=== PATIENT | female | born 1940 | race Caucasian/White ===

== ENCOUNTER 2020-08-29 16:21 | Inpatient (IN) | payer MEDICARE ==
[~2020-08-29] VITALS: Ht 162.6 cm; Wt 73.1 kg
[2020-08-29] MEDS ORDERED: Z GUARD REMEDY PASTE 57 GM TUBE TOP PRN (20:00)
[2020-08-29 22:00] VITALS: BP 138/64
[2020-08-29] MEDS ORDERED: ONDA4TAB11 PO (22:43)
[2020-08-29] MEDS ORDERED: BISA10SU61 RC (22:43)
[2020-08-29] MEDS ORDERED: IPRA3AMP23 IH (22:43)
[2020-08-29] MEDS ORDERED: ESCI10TA PO (22:43)
[2020-08-29] MEDS ORDERED: CYAN100T44 PO (22:43)
[2020-08-29] MEDS ORDERED: MONT10TA33 PO (22:43)
[2020-08-29] MEDS ORDERED: DILT30TA2 PO (22:43)
[2020-08-29] MEDS ORDERED: [UNRECOGNIZED DRUG - CODE] PO (22:43)
[2020-08-29] MEDS ORDERED: POLY17PO4 GT (22:43)
[2020-08-29] MEDS ORDERED: SENN-261 PO (22:43)
[2020-08-29] MEDS ORDERED: PHEN30SP9 MM (22:43)
[2020-08-29] MEDS ORDERED: APIX5TAB PO (22:43)
[2020-08-29] MEDS ORDERED: BENZ200C53 PO (22:43)
[2020-08-29] MEDS ORDERED: POLY17PO4 PO (22:43)
[2020-08-29] MEDS ORDERED: AMIO400T5 PO (22:43)
[2020-08-29] MEDS ORDERED: METO-356 PO (22:43)
[2020-08-29] MEDS ORDERED: FOLI1TAB94 PO (22:43)
[2020-08-29] MEDS ORDERED: LIDO30AD10 TD ×2 (22:43)
[2020-08-29] MEDS ORDERED: CLON0.5T4 PO (22:43)
[2020-08-29] MEDS ORDERED: IPRA0.2S48 NEB (22:43)
--- NOTE | 2020-08-30 02:31 | NUR ---
Admitted a 80 yr old female from [facility] with admitting diagnosis of acute COPD exacerbation and chronic hypoxic respiratory failure. AAOx3-4. Hx of Afib, Anemia, Arthritis, COVID(+) 2019. Patient DNR/DNI. Allergies to Iodine, Oxycodone, Percocet, Azithromycin. Lungs diminished. On continous 3L via nasal cannula, pulse 0x 94%. Incontinent of bowel and bladder. Kept clean and dry. No BM noted this shift. Skin intact, but has some redness on the sacral area. Dr Wiggins aware of patient's admission. VSS. Needs attended. Will monitor patient. Fall precautions maintained. Siderails up for safety.
[2020-08-30 05:32] VITALS: BP 136/50
[2020-08-30] MEDS ORDERED: CALCIUM CARBONATE 500 MG TAB.CHEW PO PRN (07:45)
[2020-08-30] MEDS ORDERED: ONDANSETRON ODT 4 MG TAB.RAPDIS SL PRN ×2 (07:45)
[2020-08-30] MEDS ORDERED: IPRATROPIUM BROMIDE 0.5 MG/2.5 ML NEBU NEB PRN (07:45)
[2020-08-30] MEDS ORDERED: Medication Not On Formulary EA (Benzonatate 200 MG) PO SCH (07:45)
[2020-08-30] MEDS ORDERED: BISACODYL 10 MG SUPP.RECT RC PRN (07:45)
[2020-08-30 08:08] VITALS: BP 138/64
[2020-08-30] MEDS: DILTIAZEM HCL 30 MG TABLET PO SCH ×2 (08:34→16:30)
[2020-08-30] MEDS ORDERED: Medication Not On Formulary EA (Amiodarone Hcl (Cordarone) 400 MG) PO SCH (09:00)
[2020-08-30] MEDS ORDERED: CYANOCOBALAMIN 100 MCG TABLET PO SCH (09:00)
[2020-08-30] MEDS: MIRALAX 17 GM POWD.PACK PO SCH (09:03)
[2020-08-30] MEDS: MONTELUKAST SODIUM 10 MG TABLET PO SCH (09:04)
[2020-08-30] MEDS: FOLIC ACID 1 MG TABLET PO SCH (09:04)
[2020-08-30] MEDS: ESCITALOPRAM OXALATE 10 MG TABLET PO SCH (09:05)
[2020-08-30] MEDS: LIDOCAINE 5% PATCH TD SCH ×2 (09:05→09:06)
[2020-08-30] MEDS: APIXABAN 5 MG TABLET PO SCH ×2 (09:07→16:33)
[2020-08-30] MEDS ORDERED: PHENOL/SODIUM PHENOLATE SPRAY 177 ML BOTTLE MM PRN (09:15)
[2020-08-30] MEDS: CLONAZEPAM 0.5 MG TABLET PO PRN ×2 (09:44→22:14)
[2020-08-30] MEDS: ALBUTEROL SULFATE 2.5 MG/3 ML NEBU NEB SCH ×3 (10:30→21:00)
[2020-08-30] MEDS: IPRATROPIUM BROMIDE 0.5 MG/2.5 ML NEBU NEB SCH ×3 (10:30→21:00)
[2020-08-30] MEDS: CYANOCOBALAMIN 1,000 MCG TABLET PO SCH (11:36)
--- NOTE | 2020-08-30 13:43 | NUR ---
INTERDISCIPLINARY TEAM CONFERENCE
[2020-08-30] MEDS: METOPROLOL SUCCINATE XL 25 MG TAB.SR.24H PO SCH (14:34)
[2020-08-30 14:49] VITALS: BP 121/42
[2020-08-30] MEDS: AMIODARONE HCL 200 MG TABLET PO SCH (16:34)
--- NOTE | 2020-08-30 17:02 | NUR ---
patient is alert, oriented x4, no sob, resp even nonlabored, skin warm and dry to touch, total care with adls, participated with rehab OT, PT evaluation, patient seems upper respiratory congestion, breathing tx administered as ordered, saturating at 90s with 2 liter of o2 via nasal canula, no distress noted, turned and repositioned every 2 hours while in bed, heels floated on pillows to relieve the pressure. no distress noted.
[2020-08-30 20:00] VITALS: BP 109/76
--- NOTE | 2020-08-30 20:16 | NUR ---
PATIENT HAS LOW GRADE TEMP 100.4 COOLING MEASURE GIVEN, PATIENT STILL HAS PRODUCTIVE COUGH, ABLE TO SPIT AND SUCTION SELF, NO S/S OF DISTRESS. CONT TO MONITOR.
--- NOTE | 2020-08-30 20:30 | NUR ---
ADITI A CALL TO EXCHANGE OF DR. Niko MARX AND LEFT A MESSAGE REGARDING THE TEMP, AWAITING FOR RESPONSE.
[2020-08-30] MEDS: SENNOSIDES 1 TABLET PO SCH (20:35)
--- NOTE | 2020-08-30 22:05 | NUR ---
PATIENT SEEN BY [facility] INFECTIOUS NURSE AND REPORTED THAT PATIENT HAS TEMP 100.4 WITH ORDER OF BLOOD CULTURE AND XRAY IN AM.
[2020-08-30] MEDS: BENZONATATE 100 MG CAPSULE PO PRN (22:14)
--- NOTE | 2020-08-30 22:14 | NUR ---
PATIENT ALERT ORIENTED, NO SOB NO CHEST PAIN, ON 2L NC FOR SOB. PATIENT ON HHN TX ORDERED. PATIENT HAS SLIGHTLY PRODUCTIVE COUGH, SUCTION SELF WITH SMALL WHITISH COLOR SPUTUM. PATIENT ALSO REQUESTED KLONOPIN FOR ANXIETY AND FOR SLEEP. PATIENT INCONTINENT OF BOWEL AND BLADDER, RENDERED [facility], CONT TO MONITOR.
[2020-08-31 04:00] VITALS: BP 119/55
[2020-08-31 06:52] LABS: BASOPHILS # (AUTO) 0.1 K/uL (0.0-8.0); BASOPHILS % (AUTO) 0.6 % (0.0-2.0); EOSINOPHILS # (AUTO) 0.5 K/uL (0.0-0.7); EOSINOPHILS % (AUTO) 5.1 % (0.0-7.0); HEMATOCRIT 27.7 % (31.2-41.9); HEMOGLOBIN 9.2 g/dL (10.9-14.3); LYMPHOCYTES # (AUTO) 1.7 K/uL (20.0-40.0); LYMPHOCYTES % (AUTO) 19.4 % (20.5-51.5); MEAN CORPUSCULAR HEMOGLOBIN 32.4 uug (24.7-32.8); MEAN CORPUSCULAR HGB CONC 33 g/dL (32.3-35.6); MEAN CORPUSCULAR VOLUME 96.8 fL (75.5-95.3); MONOCYTES # (AUTO) 1.4 K/uL (2.0-10.0); MONOCYTES % (AUTO) 15.2 % (0.0-11.0); NEUTROPHILS # (AUTO) 5.4 K/uL (1.8-8.9); NEUTROPHILS % (AUTO) 59.7 % (38.5-71.5); PLATELET COUNT (AUTO) 179 K/uL (179-408); RED BLOOD CELL COUNT(AUTO) 2.86 MIL/uL (3.63-4.92)
[2020-08-31 07:14] LABS: BILIRUBIN,TOTAL 0.6 mg/dL (0.2-1.0); CREATININE 1.1 mg/dL (0.6-1.3); MAGNESIUM 1.7 mg/dL (1.8-2.4); PHOSPHOROUS 3.8 mg/dL (2.5-4.9); POTASSIUM 3.3 mmol/L (3.5-5.1); TOTAL PROTEIN, SERUM 6.1 g/dL (6.4-8.2)
--- NOTE | 2020-08-31 07:24 | NUR ---
patient is alert, oriented x4, Rhonchi and crackles upon auscultation, noted with upper respiratory congestion, whitish color sputum, current oral temp 98.8, no chills, resting in bed comfortably, saturating at 95% at 2 liter of oxygen. refused to have deep suctioning per RT, Patient prefers to suction herself, teaching provided and patient demonstrated back. continue to monitor
[2020-08-31] MEDS: IPRATROPIUM BROMIDE 0.5 MG/2.5 ML NEBU NEB SCH ×4 (07:31→21:30)
[2020-08-31] MEDS: ALBUTEROL SULFATE 2.5 MG/3 ML NEBU NEB SCH ×4 (07:31→21:30)
--- NOTE | 2020-08-31 07:37 | NUR ---
PATIENT ALERT ORIENTED, NO SOB NO CHEST PAIN, OXYGEN SAT WNL, CONT HHN TX FOR COPD COUGH. PATIENT WAS KEPT CLEAN DRY AND COMFORTABLE, CONT TO MONITOR.
--- NOTE | 2020-08-31 07:43 | NUR ---
patient is currently getting her breathing tx HHN, alert, and able to cough up secretions, continue to monitor
[2020-08-31 07:52] VITALS: BP 116/54
[2020-08-31] MEDS: APIXABAN 5 MG TABLET PO SCH ×2 (08:15→16:31)
[2020-08-31] MEDS: AMIODARONE HCL 200 MG TABLET PO SCH ×2 (08:15→16:25)
[2020-08-31] MEDS: FOLIC ACID 1 MG TABLET PO SCH (08:15)
[2020-08-31] MEDS: DILTIAZEM HCL 30 MG TABLET PO SCH ×2 (08:16→16:25)
[2020-08-31] MEDS: CYANOCOBALAMIN 1,000 MCG TABLET PO SCH (08:16)
[2020-08-31] MEDS: ESCITALOPRAM OXALATE 10 MG TABLET PO SCH (08:16)
[2020-08-31] MEDS: MONTELUKAST SODIUM 10 MG TABLET PO SCH (08:16)
[2020-08-31] MEDS: MIRALAX 17 GM POWD.PACK PO SCH ×2 (08:17→09:00)
[2020-08-31] MEDS: LIDOCAINE 5% PATCH TD SCH ×2 (08:18)
[2020-08-31] MEDS: BENZONATATE 100 MG CAPSULE PO PRN ×2 (08:19→20:17)
[2020-08-31] MEDS: METOPROLOL SUCCINATE XL 25 MG TAB.SR.24H PO SCH (08:20)
[2020-08-31] MEDS ORDERED: POTASSIUM CHLORIDE 20 MEQ TAB.PRT.SR PO ONE (08:45)
[2020-08-31] MEDS ORDERED: MAGNESIUM SULFATE/D5W 100 ML IV SCH (10:15)
[2020-08-31] MEDS ORDERED: MAGNESIUM OXIDE 400 MG TABLET PO ONE (11:30)
--- NOTE | 2020-08-31 12:42 | NUR ---
patient stated she is constipated however patient refused miralaz and offered ducolax suppository, also refused ducolax suppository, explained risks and benefits, patient verbalized understanding of it, will follow up with Dr Zapien
[2020-08-31 14:39] VITALS: BP 115/49
[2020-08-31] MEDS ORDERED: MIRALAX 17 GM POWD.PACK PO SCH (15:15)
[2020-08-31] MEDS ORDERED: PIPERACILLIN SODIUM/TAZOBACTAM 3.375 G in IV DEXTROSE 5% 50 ML IV SCH (15:15)
[2020-08-31] MEDS ORDERED: MAGNESIUM CITRATE 296 ML BOTTLE PO ONE (15:45)
[2020-08-31 15:49] LABS: EOSINOPHILS % (MANUAL) 5 % (0-8); LYMPHOCYTES % (MANUAL) 19 % (20-40); MONOCYTES % (MANUAL) 16 % (2-10); NEUTROPHILS % (MANUAL) 60 % (42-75)
[2020-08-31] MEDS: ENSURE ENLIVE (VAN) 240 ML LIQUID PO SCH (16:33)
[2020-08-31] MEDS: VANCOMYCIN IV 1,250 MG in IV DEXTROSE 5% 250 ML IV SCH (16:59)
[2020-08-31] MEDS: PIPERACILLIN/TAZO 2.25 G in IV DEXTROSE 5% 50 ML IV SCH (17:00)
--- NOTE | 2020-08-31 18:00 | NUR ---
magnesium citrate ordered for constipation, endorsed to next shift to monitor for effectiveness
--- NOTE | 2020-08-31 19:30 | NUR ---
Received patient lying in bed. AAOx4. In no acute distress. On O2 at 2LPM via NC in place. O2 sat at 97% at this time. Patient able to suction own secretions PRN. Noted with sporadic cough. HOB elevated. IV site on left FA intact and patent. Needs assessed and attended to. Safety measure initiated and call cassidy within reached.
[2020-08-31 20:05] VITALS: BP 109/52
[2020-08-31] MEDS: SENNOSIDES 1 TABLET PO SCH (20:17)
[2020-08-31] MEDS: MUPIROCIN 2% OINT 22 GM TUBE NS SCH (20:34)
[2020-08-31] MEDS ORDERED: METO25TA6 PO (21:23)
[2020-08-31] MEDS ORDERED: PANT40VI IV (21:27)
[2020-08-31] MEDS ORDERED: MIRALAX 17 GM POWD.PACK PO PRN (21:28)
[2020-09-01] MEDS: PIPERACILLIN/TAZO 2.25 G in IV DEXTROSE 5% 50 ML IV SCH ×2 (00:12→05:02)
[2020-09-01 04:00] VITALS: BP 119/51
--- NOTE | 2020-09-01 06:22 | NUR ---
Patient slept well last night. Denies any SOB. On O2 at 2LPM via NC. O2 sat at 94%. No further coughing noted. Afebrile. IV site on left FA intact and patent. No adverse reaction noted from IV antibiotics. Needs attended to and met. Safety measure maintained and call cassidy within reached.
[2020-09-01] MEDS: IPRATROPIUM BROMIDE 0.5 MG/2.5 ML NEBU NEB SCH ×4 (07:32→19:15)
[2020-09-01] MEDS: ALBUTEROL SULFATE 2.5 MG/3 ML NEBU NEB SCH ×4 (07:32→19:15)
[2020-09-01 08:13] VITALS: BP 114/46
[2020-09-01] MEDS ORDERED: LACTULOSE 20 G/30 ML LIQUID UDC PO PRN (08:15)
[2020-09-01] MEDS ORDERED: POTASSIUM CHLORIDE 20 MEQ TAB.PRT.SR PO ONE (08:15)
[2020-09-01] MEDS: MONTELUKAST SODIUM 10 MG TABLET PO SCH (09:20)
[2020-09-01] MEDS: METOPROLOL SUCCINATE XL 25 MG TAB.SR.24H PO SCH (09:21)
[2020-09-01] MEDS: FOLIC ACID 1 MG TABLET PO SCH (09:22)
[2020-09-01] MEDS: AMIODARONE HCL 200 MG TABLET PO SCH ×2 (09:22→17:48)
[2020-09-01] MEDS: DILTIAZEM HCL 30 MG TABLET PO SCH ×2 (09:22→17:48)
[2020-09-01] MEDS: CYANOCOBALAMIN 1,000 MCG TABLET PO SCH (09:22)
[2020-09-01] MEDS: LIDOCAINE 5% PATCH TD SCH ×2 (09:23→09:30)
[2020-09-01] MEDS: MUPIROCIN 2% OINT 22 GM TUBE NS SCH ×2 (09:23→21:00)
[2020-09-01] MEDS: ESCITALOPRAM OXALATE 10 MG TABLET PO SCH (09:23)
[2020-09-01] MEDS: ENSURE ENLIVE (VAN) 240 ML LIQUID PO SCH ×2 (09:24→17:50)
[2020-09-01] MEDS: APIXABAN 5 MG TABLET PO SCH ×2 (09:26→17:50)
[2020-09-01] MEDS: CLONAZEPAM 0.5 MG TABLET PO PRN ×2 (10:41→22:14)
[2020-09-01] MEDS ORDERED: MEROPENEM 1 G in IV NORMAL SALINE 100 ML IV ONE (12:00)
[2020-09-01] MEDS ORDERED: MEROPENEM 0.5 G in IV NORMAL SALINE 50 ML IV SCH (14:00)
--- NOTE | 2020-09-01 14:31 | NUR ---
INDIVIDUALIZED PLAN OF CARE
[2020-09-01 15:32] VITALS: BP 103/47
[2020-09-01] MEDS: ACETAMINOPHEN 325 MG TABLET PO PRN (17:49)
[2020-09-01] MEDS: VANCOMYCIN IV 1,250 MG in IV DEXTROSE 5% 250 ML IV SCH (17:52)
[2020-09-01 20:39] VITALS: BP 104/36
[2020-09-01] MEDS ORDERED: MUPIROCIN 2% OINT 22 GM TUBE NS SCH (21:00)
[2020-09-01] MEDS: SENNOSIDES 1 TABLET PO SCH (21:10)
--- NOTE | 2020-09-01 21:55 | NUR ---
Bactroban 2% ointment order is duplicate order. non administer duplicate order.
[2020-09-02] MEDS: MEROPENEM 1 G in IV NORMAL SALINE 100 ML IV SCH ×3 (00:08→23:00)
[2020-09-02] MEDS: GUAIFENESIN SUGAR FREE 100 MG/5 ML UDC PO PRN ×3 (02:16→23:00)
[2020-09-02 04:00] VITALS: BP 126/58
--- NOTE | 2020-09-02 04:36 | NUR ---
Starting of shift Received patient watching TV lying in bed. AAOx4. In no acute distress. Patient on O2 at 2LPM via NC in place. O2 sat at 95% at this time. Patient able to suction own secretions PRN. Noted with sporadic cough. PRN Robitussin Plus sugar free & PRN Clonazepam administered on patient request as ordered by MD to relieve anxiety. helped pt to relieve discomfort, HOB elevated. IV site on left FA intact and patent. All due medication administered as ordered IV ATB administered as ordered no adverse reaction noted. Slept all night with no further coughing or discomfort noted. Patient Needs assessed and attended all time. Safety measure initiated and call cassidy within reach. Will continue monitoring.
[2020-09-02 05:46] LABS: BASOPHILS % (AUTO) 0.5 % (0.0-2.0); EOSINOPHILS # (AUTO) 0.7 K/uL (0.0-0.7); EOSINOPHILS % (AUTO) 9.2 % (0.0-7.0); HEMATOCRIT 24.4 % (31.2-41.9); HEMOGLOBIN 8.1 g/dL (10.9-14.3); LYMPHOCYTES # (AUTO) 1.8 K/uL (20.0-40.0); LYMPHOCYTES % (AUTO) 21.9 % (20.5-51.5); MEAN CORPUSCULAR HEMOGLOBIN 32.1 uug (24.7-32.8); MEAN CORPUSCULAR HGB CONC 33 g/dL (32.3-35.6); MEAN CORPUSCULAR VOLUME 96.8 fL (75.5-95.3); MONOCYTES # (AUTO) 1.3 K/uL (2.0-10.0); MONOCYTES % (AUTO) 15.6 % (0.0-11.0); NEUTROPHILS # (AUTO) 4.2 K/uL (1.8-8.9); NEUTROPHILS % (AUTO) 52.8 % (38.5-71.5); PLATELET COUNT (AUTO) 172 K/uL (179-408); RED BLOOD CELL COUNT(AUTO) 2.52 MIL/uL (3.63-4.92)
[2020-09-02 05:59] LABS: CARBON DIOXIDE 33 mmol/L (21-32); CHLORIDE 103 mmol/L (98-107); CREATININE 1.5 mg/dL (0.6-1.3); GLUCOSE 86 mg/dL (74-106); MAGNESIUM 1.8 mg/dL (1.8-2.4); PHOSPHOROUS 3.7 mg/dL (2.5-4.9); POTASSIUM 3.9 mmol/L (3.5-5.1); UREA NITROGEN, BLOOD 12 mg/dL (7-18)
[2020-09-02] MEDS: ALBUTEROL SULFATE 2.5 MG/3 ML NEBU NEB SCH ×4 (07:36→18:32)
[2020-09-02] MEDS: IPRATROPIUM BROMIDE 0.5 MG/2.5 ML NEBU NEB SCH ×4 (07:36→18:32)
[2020-09-02 08:00] VITALS: BP 114/52
[2020-09-02 08:47] LABS: IRON, SERUM 23 ug/dL (50-175)
[2020-09-02] MEDS: DILTIAZEM HCL 30 MG TABLET PO SCH (09:08)
[2020-09-02] MEDS: ESCITALOPRAM OXALATE 10 MG TABLET PO SCH (09:09)
[2020-09-02] MEDS: AMIODARONE HCL 200 MG TABLET PO SCH ×2 (09:09→18:13)
[2020-09-02] MEDS: CYANOCOBALAMIN 1,000 MCG TABLET PO SCH (09:09)
[2020-09-02] MEDS: METOPROLOL SUCCINATE XL 25 MG TAB.SR.24H PO SCH (09:10)
[2020-09-02] MEDS: FOLIC ACID 1 MG TABLET PO SCH (09:10)
[2020-09-02] MEDS: ENSURE ENLIVE (VAN) 240 ML LIQUID PO SCH ×2 (09:10→18:20)
[2020-09-02] MEDS: APIXABAN 5 MG TABLET PO SCH ×2 (09:19→18:14)
[2020-09-02] MEDS: LIDOCAINE 5% PATCH TD SCH ×2 (09:21→09:39)
--- NOTE | 2020-09-02 09:30 | NUR ---
Patient in bed, alert and oriented x 4, able to make needs known, denies of any pain. Patient on 3LPM oxygen via nasal cannula at 95% . No s/s of distress. Seen by Dr. Chen with no new order. All needs met promptly. Started a new IV line on the Left hand , tolerated well. Temp: 99.9 cooling measures given. All needs met in a timely manner. Call light within reach.
[2020-09-02] MEDS: MUPIROCIN 2% OINT 22 GM TUBE NS SCH ×2 (09:38→20:42)
[2020-09-02] MEDS: ACETAMINOPHEN 325 MG TABLET PO PRN (14:46)
[2020-09-02 15:00] VITALS: BP 114/42
[2020-09-02 15:24] LABS: BAND % (MANUAL) 2 % (0-10); EOSINOPHILS % (MANUAL) 15 % (0-8); LYMPHOCYTES % (MANUAL) 22 % (20-40); MONOCYTES % (MANUAL) 10 % (2-10); NEUTROPHILS % (MANUAL) 51 % (42-75)
[2020-09-02] MEDS: VANCOMYCIN IV 1,250 MG in IV DEXTROSE 5% 250 ML IV SCH (17:00)
[2020-09-02] MEDS: MONTELUKAST SODIUM 10 MG TABLET PO SCH (18:12)
[2020-09-02] MEDS: DILTIAZEM HCL 60 MG TABLET PO SCH (18:14)
[2020-09-02] MEDS: SENNOSIDES 1 TABLET PO SCH (20:42)
[2020-09-02] MEDS: BENZONATATE 100 MG CAPSULE PO PRN (20:42)
[2020-09-02 20:56] VITALS: BP 103/42
--- NOTE | 2020-09-02 21:04 | NUR ---
Received pt resting in bed. AAO x4. On 3L O2 via NC, No acute distress noted. Denies pain/ discomfort. Due med given as ordered. PRN cough med given. Teaching provided regarding the use of incentive spirometer, pt able to demonstrate. Turned and repositioned, both heels offloaded. Safety measures maintained. Call light and personal items within reach. Will continue to monitor.
[2020-09-02] MEDS: CLONAZEPAM 0.5 MG TABLET PO PRN (23:00)
[2020-09-03 04:50] VITALS: BP 116/44
[2020-09-03] MEDS ORDERED: VANCOMYCIN IV 1,000 MG in IV DEXTROSE 5% 250 ML IV SCH (06:00)
[2020-09-03 06:05] LABS: BASOPHILS # (AUTO) 0.1 K/uL (0.0-8.0); BASOPHILS % (AUTO) 0.8 % (0.0-2.0); EOSINOPHILS # (AUTO) 0.8 K/uL (0.0-0.7); EOSINOPHILS % (AUTO) 11.6 % (0.0-7.0); HEMATOCRIT 23.6 % (31.2-41.9); HEMOGLOBIN 7.9 g/dL (10.9-14.3); LYMPHOCYTES # (AUTO) 1.6 K/uL (20.0-40.0); LYMPHOCYTES % (AUTO) 21.5 % (20.5-51.5); MEAN CORPUSCULAR HEMOGLOBIN 32.2 uug (24.7-32.8); MEAN CORPUSCULAR HGB CONC 33 g/dL (32.3-35.6); MEAN CORPUSCULAR VOLUME 96.5 fL (75.5-95.3); MONOCYTES # (AUTO) 1.1 K/uL (2.0-10.0); MONOCYTES % (AUTO) 15.5 % (0.0-11.0); NEUTROPHILS # (AUTO) 3.7 K/uL (1.8-8.9); NEUTROPHILS % (AUTO) 50.6 % (38.5-71.5); PLATELET COUNT (AUTO) 199 K/uL (179-408); WHITE BLOOD COUNT (AUTO) 7.3 K/uL (3.8-11.8)
[2020-09-03 06:13] LABS: CARBON DIOXIDE 33 mmol/L (21-32); CHLORIDE 105 mmol/L (98-107); CREATININE 1.9 mg/dL (0.6-1.3); GLUCOSE 82 mg/dL (74-106); MAGNESIUM 1.9 mg/dL (1.8-2.4); PHOSPHOROUS 4.2 mg/dL (2.5-4.9); POTASSIUM 3.9 mmol/L (3.5-5.1); RED BLOOD CELL COUNT(AUTO) 2.45 MIL/uL (3.63-4.92); UREA NITROGEN, BLOOD 13 mg/dL (7-18)
[2020-09-03 06:36] LABS: EOSINOPHILS % (MANUAL) 10 % (0-8); LYMPHOCYTES % (MANUAL) 20 % (20-40); MONOCYTES % (MANUAL) 15 % (2-10); NEUTROPHILS % (MANUAL) 55 % (42-75)
--- NOTE | 2020-09-03 06:47 | NUR ---
As per pharmacy, ok to give Vanco dose this morning.
[2020-09-03] MEDS: IPRATROPIUM BROMIDE 0.5 MG/2.5 ML NEBU NEB SCH ×4 (07:30→19:34)
[2020-09-03] MEDS: ALBUTEROL SULFATE 2.5 MG/3 ML NEBU NEB SCH ×4 (07:30→19:34)
[2020-09-03 08:00] VITALS: BP 123/49
[2020-09-03] MEDS: DILTIAZEM HCL 60 MG TABLET PO SCH ×2 (09:06→17:24)
[2020-09-03] MEDS: FOLIC ACID 1 MG TABLET PO SCH (09:07)
[2020-09-03] MEDS: METOPROLOL SUCCINATE XL 25 MG TAB.SR.24H PO SCH (09:07)
[2020-09-03] MEDS: CYANOCOBALAMIN 1,000 MCG TABLET PO SCH (09:07)
[2020-09-03] MEDS: AMIODARONE HCL 200 MG TABLET PO SCH ×2 (09:07→17:24)
[2020-09-03] MEDS: ESCITALOPRAM OXALATE 10 MG TABLET PO SCH (09:07)
[2020-09-03] MEDS: LIDOCAINE 5% PATCH TD SCH ×2 (09:08)
[2020-09-03] MEDS: ENSURE ENLIVE (VAN) 240 ML LIQUID PO SCH ×2 (09:08→17:24)
[2020-09-03] MEDS: MUPIROCIN 2% OINT 22 GM TUBE NS SCH ×2 (09:10→20:08)
[2020-09-03] MEDS: APIXABAN 5 MG TABLET PO SCH ×2 (09:29→17:34)
[2020-09-03] MEDS: ACETAMINOPHEN 325 MG TABLET PO PRN (10:15)
[2020-09-03] MEDS: MEROPENEM 500 MG in IV NORMAL SALINE 50 ML IV SCH ×2 (12:30→23:48)
[2020-09-03 16:15] VITALS: BP 95/45
[2020-09-03] MEDS: MONTELUKAST SODIUM 10 MG TABLET PO SCH (17:19)
--- NOTE | 2020-09-03 18:00 | NUR ---
Patient complained of constipation and requested for a suppository, given PRN suppository as ordered. Assisted with her needs promptly. Call light and frequently used items placed within patient's reach.
[2020-09-03] MEDS: CLONAZEPAM 0.5 MG TABLET PO PRN (20:08)
[2020-09-03] MEDS: GUAIFENESIN SUGAR FREE 100 MG/5 ML UDC PO PRN ×2 (20:08→23:46)
[2020-09-03] MEDS: SENNOSIDES 1 TABLET PO SCH (20:08)
[2020-09-03 20:23] VITALS: BP 112/48
--- NOTE | 2020-09-03 20:30 | NUR ---
Received pt resting in bed. AAO x4. No acute distress noted. Pt on 3L O2 via NC saturation 99%. Titrated down to 2.5L O2, pt tolerating well. No SOB. Denies pain/ discomfort. Pt refused Senokot, pt had BM after receiving suppository. Pt requested Robitussin and Klonopin, given as ordered. Turned and repositioned. Both heels offloaded. Safety measures maintained. Call light and personal items within reach. Will continue to monitor.
[2020-09-03] MEDS: ALBUTEROL SULFATE 2.5 MG/3 ML NEBU NEB PRN (23:55)
[2020-09-04] MEDS: BENZONATATE 100 MG CAPSULE PO PRN (03:22)
[2020-09-04 04:17] VITALS: BP 136/71
[2020-09-04] MEDS: ALBUTEROL SULFATE 2.5 MG/3 ML NEBU NEB PRN (06:14)
[2020-09-04 06:37] LABS: BASOPHILS # (AUTO) 0.1 K/uL (0.0-8.0); EOSINOPHILS # (AUTO) 0.6 K/uL (0.0-0.7); EOSINOPHILS % (AUTO) 9.1 % (0.0-7.0); HEMATOCRIT 24.6 % (31.2-41.9); HEMOGLOBIN 8.1 g/dL (10.9-14.3); LYMPHOCYTES # (AUTO) 1.7 K/uL (20.0-40.0); LYMPHOCYTES % (AUTO) 24.8 % (20.5-51.5); MEAN CORPUSCULAR HEMOGLOBIN 31.7 uug (24.7-32.8); MEAN CORPUSCULAR HGB CONC 33 g/dL (32.3-35.6); MEAN CORPUSCULAR VOLUME 95.5 fL (75.5-95.3); MONOCYTES % (AUTO) 15.3 % (0.0-11.0); NEUTROPHILS # (AUTO) 3.4 K/uL (1.8-8.9); NEUTROPHILS % (AUTO) 49.8 % (38.5-71.5); PLATELET COUNT (AUTO) 206 K/uL (179-408); RED BLOOD CELL COUNT(AUTO) 2.57 MIL/uL (3.63-4.92); WHITE BLOOD COUNT (AUTO) 6.8 K/uL (3.8-11.8)
[2020-09-04] MEDS ORDERED: IPRATROPIUM BROMIDE 0.5 MG/2.5 ML NEBU NEB PRN (06:45)
[2020-09-04 06:56] LABS: ALANINE AMINOTRANSFERASE 8 U/L (14-59); ALKALINE PHOSPHATASE 118 U/L (50-136); ASPARTATE AMINOTRANSFERASE 16 U/L (15-37); BILIRUBIN,TOTAL 0.3 mg/dL (0.2-1.0); CARBON DIOXIDE 34 mmol/L (21-32); CHLORIDE 103 mmol/L (98-107); CREATININE 1.9 mg/dL (0.6-1.3); GLUCOSE 90 mg/dL (74-106); POTASSIUM 3.9 mmol/L (3.5-5.1); TOTAL PROTEIN, SERUM 5.8 g/dL (6.4-8.2); UREA NITROGEN, BLOOD 14 mg/dL (7-18)
[2020-09-04 06:57] LABS: MAGNESIUM 1.8 mg/dL (1.8-2.4); PHOSPHOROUS 3.9 mg/dL (2.5-4.9); VANCOMYCIN,RANDOM 26.2 ug/mL (18.0-26.0)
[2020-09-04 07:22] LABS: EOSINOPHILS % (MANUAL) 8 % (0-8); LYMPHOCYTES % (MANUAL) 25 % (20-40); MONOCYTES % (MANUAL) 15 % (2-10); NEUTROPHILS % (MANUAL) 52 % (42-75)
[2020-09-04] MEDS: ALBUTEROL SULFATE 2.5 MG/3 ML NEBU NEB SCH ×4 (07:35→19:33)
[2020-09-04] MEDS: IPRATROPIUM BROMIDE 0.5 MG/2.5 ML NEBU NEB SCH ×4 (07:35→19:33)
[2020-09-04 08:00] VITALS: BP 13/50
[2020-09-04 08:01] VITALS: BP 131/50
[2020-09-04] MEDS: CYANOCOBALAMIN 1,000 MCG TABLET PO SCH (09:40)
[2020-09-04] MEDS: FOLIC ACID 1 MG TABLET PO SCH (09:40)
[2020-09-04] MEDS: ESCITALOPRAM OXALATE 10 MG TABLET PO SCH (09:40)
[2020-09-04] MEDS: APIXABAN 5 MG TABLET PO SCH ×2 (09:41→17:21)
[2020-09-04] MEDS: METOPROLOL SUCCINATE XL 25 MG TAB.SR.24H PO SCH (09:41)
[2020-09-04] MEDS: DILTIAZEM HCL 60 MG TABLET PO SCH ×2 (09:42→17:28)
[2020-09-04] MEDS: AMIODARONE HCL 200 MG TABLET PO SCH ×2 (09:44→17:20)
[2020-09-04] MEDS: MUPIROCIN 2% OINT 22 GM TUBE NS SCH ×2 (09:45→20:13)
[2020-09-04] MEDS: LIDOCAINE 5% PATCH TD SCH ×2 (09:45→09:47)
[2020-09-04] MEDS: ENSURE ENLIVE (VAN) 240 ML LIQUID PO SCH ×2 (09:46→17:29)
[2020-09-04] MEDS: MEROPENEM 500 MG in IV NORMAL SALINE 50 ML IV SCH (12:32)
[2020-09-04 16:33] VITALS: BP 105/39
[2020-09-04 17:20] VITALS: BP 135/55
[2020-09-04] MEDS: DOXYCYCLINE HYCLATE 100 MG TABLET PO SCH (17:20)
[2020-09-04] MEDS: MONTELUKAST SODIUM 10 MG TABLET PO SCH (17:20)
[2020-09-04] MEDS: CLONAZEPAM 0.5 MG TABLET PO PRN (17:22)
--- NOTE | 2020-09-04 18:17 | NUR ---
Pt watching TV, in no acute distress. Pt A&Ox4, able to verbalize needs, all needs met at this time. Due medications given per order, no a/r noted. Vanco trough level noted, per pharmacy no IV Vanco today. VSS. Pt noted with sporadic coughing, refused PRN Robitussin. Pt received scheduled breathing treatments, tolerated well. Pt instructed on incentive spirometry usage, returned demonstration, per pt "it works". Minimal sputum noted, clear with yellow tinge. Dr. Chen at bedside this am, report given. Pt, stated feeling anxious this evening, requested PRN Klonopin, per pt effective. Safety measures, fall precautions, aspiration precautions in place. Call light and belongings within reach. Will endorse to night clerk nurse for continuity of care.
[2020-09-04] MEDS: SENNOSIDES 1 TABLET PO SCH (20:13)
[2020-09-04 20:35] VITALS: BP 116/50
[2020-09-05] MEDS: MEROPENEM 500 MG in IV NORMAL SALINE 50 ML IV SCH ×3 (00:19→23:19)
[2020-09-05] MEDS: ALBUTEROL SULFATE 2.5 MG/3 ML NEBU NEB PRN (02:01)
[2020-09-05] MEDS: GUAIFENESIN SUGAR FREE 100 MG/5 ML UDC PO PRN (02:26)
[2020-09-05 04:41] VITALS: BP 126/46
[2020-09-05 06:25] LABS: BASOPHILS # (AUTO) 0.1 K/uL (0.0-8.0); BASOPHILS % (AUTO) 0.8 % (0.0-2.0); EOSINOPHILS # (AUTO) 0.6 K/uL (0.0-0.7); EOSINOPHILS % (AUTO) 9.2 % (0.0-7.0); HEMATOCRIT 24.4 % (31.2-41.9); HEMOGLOBIN 7.9 g/dL (10.9-14.3); LYMPHOCYTES # (AUTO) 1.9 K/uL (20.0-40.0); LYMPHOCYTES % (AUTO) 30.1 % (20.5-51.5); MEAN CORPUSCULAR HEMOGLOBIN 31.7 uug (24.7-32.8); MEAN CORPUSCULAR HGB CONC 33 g/dL (32.3-35.6); MEAN CORPUSCULAR VOLUME 97.4 fL (75.5-95.3); MONOCYTES % (AUTO) 16.5 % (0.0-11.0); NEUTROPHILS # (AUTO) 2.7 K/uL (1.8-8.9); NEUTROPHILS % (AUTO) 43.4 % (38.5-71.5); PLATELET COUNT (AUTO) 212 K/uL (179-408); WHITE BLOOD COUNT (AUTO) 6.2 K/uL (3.8-11.8)
[2020-09-05 06:50] LABS: CARBON DIOXIDE 34 mmol/L (21-32); CHLORIDE 102 mmol/L (98-107); CREATININE 1.8 mg/dL (0.6-1.3); GLUCOSE 85 mg/dL (74-106); MAGNESIUM 1.8 mg/dL (1.8-2.4); PHOSPHOROUS 3.8 mg/dL (2.5-4.9); POTASSIUM 3.9 mmol/L (3.5-5.1); UREA NITROGEN, BLOOD 12 mg/dL (7-18); VANCOMYCIN,RANDOM 19.6 ug/mL (18.0-26.0)
[2020-09-05] MEDS: IPRATROPIUM BROMIDE 0.5 MG/2.5 ML NEBU NEB SCH ×4 (07:38→19:43)
[2020-09-05] MEDS: ALBUTEROL SULFATE 2.5 MG/3 ML NEBU NEB SCH ×4 (07:39→19:43)
[2020-09-05 08:00] VITALS: BP 121/46
[2020-09-05] MEDS: FOLIC ACID 1 MG TABLET PO SCH (08:29)
[2020-09-05] MEDS: AMIODARONE HCL 200 MG TABLET PO SCH ×2 (08:29→17:05)
[2020-09-05] MEDS: DOXYCYCLINE HYCLATE 100 MG TABLET PO SCH ×2 (08:29→17:05)
[2020-09-05] MEDS: CYANOCOBALAMIN 1,000 MCG TABLET PO SCH (08:29)
[2020-09-05] MEDS: ESCITALOPRAM OXALATE 10 MG TABLET PO SCH (08:30)
[2020-09-05] MEDS: DILTIAZEM HCL 60 MG TABLET PO SCH ×2 (08:30→17:06)
[2020-09-05] MEDS: ENSURE ENLIVE (VAN) 240 ML LIQUID PO SCH ×2 (08:31→17:10)
[2020-09-05] MEDS: MUPIROCIN 2% OINT 22 GM TUBE NS SCH ×2 (08:31→20:22)
[2020-09-05] MEDS: METOPROLOL SUCCINATE XL 25 MG TAB.SR.24H PO SCH (08:31)
[2020-09-05] MEDS: LIDOCAINE 5% PATCH TD SCH ×2 (08:32)
[2020-09-05] MEDS: APIXABAN 5 MG TABLET PO SCH ×2 (08:36→17:06)
[2020-09-05] MEDS ORDERED: methylPREDNISolone SOD SUCC 40 MG/ML VIAL IV ONE (09:00)
[2020-09-05] MEDS: HYDROCODONE/APAP 10-325 MG TABLET PO PRN ×2 (09:40→20:16)
[2020-09-05 13:03] LABS: EOSINOPHILS % (MANUAL) 7 % (0-8); LYMPHOCYTES % (MANUAL) 35 % (20-40); MONOCYTES % (MANUAL) 10 % (2-10); NEUTROPHILS % (MANUAL) 48 % (42-75)
[2020-09-05 15:53] VITALS: BP 118/45
[2020-09-05] MEDS: MONTELUKAST SODIUM 10 MG TABLET PO SCH (17:05)
--- NOTE | 2020-09-05 18:39 | NUR ---
patient is alert, oriented x4, no sob, continuos on supplemental o2. patient likes to stay most of the time in the bed, even upon encouraging to sit in chair for some time or during meals, patient constantly says she is tired, she wants to go to bed, participated with PT, OT services, tolerated fairly, no acute distress noted
[2020-09-05 20:14] VITALS: BP 103/40
[2020-09-05] MEDS: CLONAZEPAM 0.5 MG TABLET PO PRN (20:16)
[2020-09-05] MEDS: SENNOSIDES 1 TABLET PO SCH (20:16)
[2020-09-05] MEDS: methylPREDNISolone SOD SUCC 40 MG/ML VIAL IV SCH (20:17)
[2020-09-06 00:17] VITALS: BP 108/44
--- NOTE | 2020-09-06 01:57 | NUR ---
AAOx3-4 Admitted for COPD exacerbation. On O2 @ 2L via nasal cannula, pulse ox 94% Needs attended. VSS. Patient incontinent of bowel and bladder. BM noted this shift. Kept comfortable. Patient on IV ABT. Tolerated well. No ill effects noted. Will monitor patient. Fall precautions maintained.
[2020-09-06 05:10] VITALS: BP 133/57
[2020-09-06 06:45] LABS: BASOPHILS % (AUTO) 0.2 % (0.0-2.0); HEMOGLOBIN 8.9 g/dL (10.9-14.3); LYMPHOCYTES # (AUTO) 0.8 K/uL (20.0-40.0); LYMPHOCYTES % (AUTO) 24.5 % (20.5-51.5); MEAN CORPUSCULAR HEMOGLOBIN 31.5 uug (24.7-32.8); MEAN CORPUSCULAR HGB CONC 33 g/dL (32.3-35.6); MEAN CORPUSCULAR VOLUME 95.7 fL (75.5-95.3); MONOCYTES # (AUTO) 0.1 K/uL (2.0-10.0); MONOCYTES % (AUTO) 1.7 % (0.0-11.0); NEUTROPHILS # (AUTO) 2.5 K/uL (1.8-8.9); NEUTROPHILS % (AUTO) 73.6 % (38.5-71.5); PLATELET COUNT (AUTO) 223 K/uL (179-408); RED BLOOD CELL COUNT(AUTO) 2.82 MIL/uL (3.63-4.92); WHITE BLOOD COUNT (AUTO) 3.4 K/uL (3.8-11.8)
[2020-09-06 07:02] LABS: CARBON DIOXIDE 31 mmol/L (21-32); CHLORIDE 100 mmol/L (98-107); CREATININE 1.9 mg/dL (0.6-1.3); GLUCOSE 170 mg/dL (74-106); PHOSPHOROUS 4.3 mg/dL (2.5-4.9); POTASSIUM 4.9 mmol/L (3.5-5.1); UREA NITROGEN, BLOOD 19 mg/dL (7-18)
[2020-09-06] MEDS: ALBUTEROL SULFATE 2.5 MG/3 ML NEBU NEB SCH ×4 (07:47→19:29)
[2020-09-06] MEDS: IPRATROPIUM BROMIDE 0.5 MG/2.5 ML NEBU NEB SCH ×4 (07:47→19:29)
[2020-09-06 08:00] VITALS: BP 151/58
[2020-09-06] MEDS: methylPREDNISolone SOD SUCC 40 MG/ML VIAL IV SCH ×2 (09:27→21:00)
[2020-09-06] MEDS: APIXABAN 5 MG TABLET PO SCH ×2 (09:28→17:48)
[2020-09-06] MEDS: ESCITALOPRAM OXALATE 10 MG TABLET PO SCH (09:30)
[2020-09-06] MEDS: DOXYCYCLINE HYCLATE 100 MG TABLET PO SCH ×2 (09:30→17:57)
[2020-09-06] MEDS: FOLIC ACID 1 MG TABLET PO SCH (09:30)
[2020-09-06] MEDS: CYANOCOBALAMIN 1,000 MCG TABLET PO SCH (09:30)
[2020-09-06] MEDS: ENSURE ENLIVE (VAN) 240 ML LIQUID PO SCH ×2 (09:30→17:58)
[2020-09-06] MEDS: DILTIAZEM HCL 60 MG TABLET PO SCH ×2 (09:32→17:57)
[2020-09-06] MEDS: MUPIROCIN 2% OINT 22 GM TUBE NS SCH ×2 (09:32→21:02)
[2020-09-06] MEDS: AMIODARONE HCL 200 MG TABLET PO SCH ×2 (09:33→17:57)
[2020-09-06] MEDS: METOPROLOL SUCCINATE XL 25 MG TAB.SR.24H PO SCH (09:33)
[2020-09-06] MEDS: LIDOCAINE 5% PATCH TD SCH ×2 (09:33→09:34)
[2020-09-06] MEDS: CLONAZEPAM 0.5 MG TABLET PO PRN ×2 (10:02→18:24)
[2020-09-06] MEDS: MEROPENEM 500 MG in IV NORMAL SALINE 50 ML IV SCH (12:52)
--- NOTE | 2020-09-06 14:39 | NUR ---
INTERDISCIPLINARY TEAM CONFERENCE
[2020-09-06 16:55] VITALS: BP 102/45
[2020-09-06] MEDS: MONTELUKAST SODIUM 10 MG TABLET PO SCH (18:00)
[2020-09-06] MEDS: HYDROCODONE/APAP 10-325 MG TABLET PO PRN (18:52)
--- NOTE | 2020-09-06 18:58 | NUR ---
Pt finishing dinner, in no acute distress, all needs met at this time. Due medications given per order, no a/r noted. Pt denies SOB. VSS. Pt tolerated scheduled breathing treatments well. PRN Klonopin administered per order for pt report of anxiousness, per pt, effective. Pt kept clean and dry. Fall precautions, aspiration precautions in place. Call light and belongings within reach. Will endorse to shift production associate nurse for continuity of care.
[2020-09-06 20:00] VITALS: BP 134/53
[2020-09-06] MEDS: SENNOSIDES 1 TABLET PO SCH (21:01)
[2020-09-06] MEDS: ACETAMINOPHEN 325 MG TABLET PO PRN (21:04)
[2020-09-06] MEDS: GUAIFENESIN SUGAR FREE 100 MG/5 ML UDC PO PRN (22:27)
[2020-09-07] MEDS: MEROPENEM 500 MG in IV NORMAL SALINE 50 ML IV SCH ×3 (00:24→23:54)
[2020-09-07 04:00] VITALS: BP 123/55
--- NOTE | 2020-09-07 04:42 | NUR ---
Sleeping during initial rounds. No s/s of respiratory distress. HOB slightly elevated. On continuos O2 at 3L/min via NC, saturating 93% at this time. No s/s of pain/discomforts noted. LH HL intact and patent. No s/s of infiltration noted. Safety measures and fall prevention maintained. Continue care as planned.
--- NOTE | 2020-09-07 06:21 | NUR ---
Vs stable. Slept well. No complaint of pain/discomforts reported. No significant event reported all night. Continue current rehab plan of care.
[2020-09-07 07:28] VITALS: BP 114/50
[2020-09-07] MEDS: ALBUTEROL SULFATE 2.5 MG/3 ML NEBU NEB SCH ×4 (07:37→19:56)
[2020-09-07] MEDS: IPRATROPIUM BROMIDE 0.5 MG/2.5 ML NEBU NEB SCH ×4 (07:37→19:56)
[2020-09-07] MEDS: LIDOCAINE 5% PATCH TD SCH ×2 (08:24→08:29)
[2020-09-07] MEDS: methylPREDNISolone SOD SUCC 40 MG/ML VIAL IV SCH ×2 (08:24→20:36)
[2020-09-07] MEDS: AMIODARONE HCL 200 MG TABLET PO SCH ×2 (08:25→17:59)
[2020-09-07] MEDS: DOXYCYCLINE HYCLATE 100 MG TABLET PO SCH ×2 (08:25→17:59)
[2020-09-07] MEDS: ESCITALOPRAM OXALATE 10 MG TABLET PO SCH (08:26)
[2020-09-07] MEDS: FOLIC ACID 1 MG TABLET PO SCH (08:26)
[2020-09-07] MEDS: METOPROLOL SUCCINATE XL 25 MG TAB.SR.24H PO SCH (08:26)
[2020-09-07] MEDS: DILTIAZEM HCL 60 MG TABLET PO SCH ×2 (08:26→17:59)
[2020-09-07] MEDS: APIXABAN 5 MG TABLET PO SCH ×2 (08:27→18:00)
[2020-09-07] MEDS: ENSURE ENLIVE (VAN) 240 ML LIQUID PO SCH ×2 (08:27→17:59)
[2020-09-07] MEDS: MUPIROCIN 2% OINT 22 GM TUBE NS SCH ×2 (08:27→20:36)
[2020-09-07] MEDS: CYANOCOBALAMIN 1,000 MCG TABLET PO SCH (08:28)
[2020-09-07] MEDS: HYDROCODONE/APAP 10-325 MG TABLET PO PRN ×2 (08:36→21:27)
[2020-09-07] MEDS: CLONAZEPAM 0.5 MG TABLET PO PRN ×2 (09:59→20:49)
[2020-09-07 11:30] VITALS: BP 114/50
[2020-09-07 16:09] VITALS: BP 126/70
[2020-09-07] MEDS: MONTELUKAST SODIUM 10 MG TABLET PO SCH (17:59)
[2020-09-07 20:25] VITALS: BP 118/55
[2020-09-07] MEDS: SENNOSIDES 1 TABLET PO SCH (20:37)
[2020-09-08 04:25] VITALS: BP 119/51
--- NOTE | 2020-09-08 05:53 | NUR ---
Shift End Report: Vs stable, Medicated once for pain and anxiety with help. No further complaint presented. All needs attended and met. No significant event reported all night. Continue current rehab plan of care.
[2020-09-08 06:24] LABS: BASOPHILS % (AUTO) 0.1 % (0.0-2.0); HEMATOCRIT 24.3 % (31.2-41.9); HEMOGLOBIN 8.1 g/dL (10.9-14.3); LYMPHOCYTES # (AUTO) 0.7 K/uL (20.0-40.0); LYMPHOCYTES % (AUTO) 10.6 % (20.5-51.5); MEAN CORPUSCULAR HEMOGLOBIN 31.9 uug (24.7-32.8); MEAN CORPUSCULAR HGB CONC 33 g/dL (32.3-35.6); MEAN CORPUSCULAR VOLUME 96.2 fL (75.5-95.3); MONOCYTES # (AUTO) 0.3 K/uL (2.0-10.0); MONOCYTES % (AUTO) 4.1 % (0.0-11.0); NEUTROPHILS # (AUTO) 5.5 K/uL (1.8-8.9); NEUTROPHILS % (AUTO) 85.2 % (38.5-71.5); PLATELET COUNT (AUTO) 229 K/uL (179-408); RED BLOOD CELL COUNT(AUTO) 2.52 MIL/uL (3.63-4.92); WHITE BLOOD COUNT (AUTO) 6.4 K/uL (3.8-11.8)
[2020-09-08 06:35] LABS: CARBON DIOXIDE 33 mmol/L (21-32); CHLORIDE 101 mmol/L (98-107); CREATININE 1.8 mg/dL (0.6-1.3); GLUCOSE 170 mg/dL (74-106); MAGNESIUM 1.9 mg/dL (1.8-2.4); PHOSPHOROUS 3.4 mg/dL (2.5-4.9); POTASSIUM 5.4 mmol/L (3.5-5.1); UREA NITROGEN, BLOOD 39 mg/dL (7-18)
[2020-09-08] MEDS: IPRATROPIUM BROMIDE 0.5 MG/2.5 ML NEBU NEB SCH ×4 (07:33→19:49)
[2020-09-08] MEDS: ALBUTEROL SULFATE 2.5 MG/3 ML NEBU NEB SCH ×4 (07:33→19:49)
[2020-09-08 08:00] VITALS: BP 148/69
[2020-09-08] MEDS: LIDOCAINE 5% PATCH TD SCH ×2 (09:02→09:09)
[2020-09-08] MEDS: CYANOCOBALAMIN 1,000 MCG TABLET PO SCH (09:03)
[2020-09-08] MEDS: AMIODARONE HCL 200 MG TABLET PO SCH ×2 (09:03→17:00)
[2020-09-08] MEDS: FOLIC ACID 1 MG TABLET PO SCH (09:04)
[2020-09-08] MEDS: METOPROLOL SUCCINATE XL 25 MG TAB.SR.24H PO SCH (09:04)
[2020-09-08] MEDS: FUROSEMIDE 20 MG TABLET PO SCH (09:04)
[2020-09-08] MEDS: ESCITALOPRAM OXALATE 10 MG TABLET PO SCH (09:04)
[2020-09-08] MEDS: DOXYCYCLINE HYCLATE 100 MG TABLET PO SCH (09:04)
[2020-09-08] MEDS: DILTIAZEM HCL 60 MG TABLET PO SCH ×2 (09:08→16:59)
[2020-09-08] MEDS: methylPREDNISolone SOD SUCC 40 MG/ML VIAL IV SCH ×2 (09:08→20:52)
[2020-09-08] MEDS: ENSURE ENLIVE (VAN) 240 ML LIQUID PO SCH ×2 (09:09→17:04)
[2020-09-08] MEDS: APIXABAN 5 MG TABLET PO SCH ×2 (09:10→17:03)
[2020-09-08] MEDS: HYDROCODONE/APAP 10-325 MG TABLET PO PRN ×2 (09:23→21:01)
[2020-09-08] MEDS: CLONAZEPAM 0.5 MG TABLET PO PRN ×2 (10:55→20:59)
[2020-09-08 14:14] VITALS: BP 115/40
[2020-09-08] MEDS: MONTELUKAST SODIUM 10 MG TABLET PO SCH (17:00)
[2020-09-08 20:38] VITALS: BP 141/57
[2020-09-08] MEDS: SENNOSIDES 1 TABLET PO SCH (20:53)
[2020-09-09 04:00] VITALS: BP 127/58
--- NOTE | 2020-09-09 05:35 | NUR ---
Shift End Report: VS astable. Slept in between care. Medicated once for pain with help. No further complaint presented after. All needs attended and met. No significant event reported all night. Continue care as planned.
[2020-09-09 07:30] VITALS: BP 154/69
[2020-09-09] MEDS: IPRATROPIUM BROMIDE 0.5 MG/2.5 ML NEBU NEB SCH ×4 (07:45→19:58)
[2020-09-09] MEDS: ALBUTEROL SULFATE 2.5 MG/3 ML NEBU NEB SCH ×4 (07:46→19:58)
[2020-09-09] MEDS: DILTIAZEM HCL 60 MG TABLET PO SCH ×2 (08:38→16:35)
[2020-09-09] MEDS: FOLIC ACID 1 MG TABLET PO SCH (08:39)
[2020-09-09] MEDS: FUROSEMIDE 20 MG TABLET PO SCH (08:39)
[2020-09-09] MEDS: METOPROLOL SUCCINATE XL 25 MG TAB.SR.24H PO SCH (08:40)
[2020-09-09] MEDS: ESCITALOPRAM OXALATE 10 MG TABLET PO SCH (08:41)
[2020-09-09] MEDS: AMIODARONE HCL 200 MG TABLET PO SCH ×2 (08:41→16:36)
[2020-09-09] MEDS: CYANOCOBALAMIN 1,000 MCG TABLET PO SCH (08:41)
[2020-09-09] MEDS: APIXABAN 5 MG TABLET PO SCH ×2 (08:42→16:37)
[2020-09-09] MEDS: ENSURE ENLIVE (VAN) 240 ML LIQUID PO SCH ×2 (08:43→16:37)
[2020-09-09] MEDS: methylPREDNISolone SOD SUCC 40 MG/ML VIAL IV SCH ×2 (08:43→20:03)
[2020-09-09] MEDS: LIDOCAINE 5% PATCH TD SCH ×2 (08:43)
[2020-09-09] MEDS: CLONAZEPAM 0.5 MG TABLET PO PRN ×2 (08:54→21:02)
[2020-09-09] MEDS: HYDROCODONE/APAP 10-325 MG TABLET PO PRN ×2 (08:54→20:08)
[2020-09-09 10:45] VITALS: BP 133/58
[2020-09-09 16:00] VITALS: BP 115/54
[2020-09-09] MEDS: MONTELUKAST SODIUM 10 MG TABLET PO SCH (17:03)
--- NOTE | 2020-09-09 18:19 | NUR ---
Patient continue pain management prior to therapy. tolerated well. Patient participates well with therapy. not in distress. patient no BM for couple of days. Miralax and lactulose PRN given. will continue monitor
[2020-09-09] MEDS: SENNOSIDES 1 TABLET PO SCH (20:04)
[2020-09-09 20:38] VITALS: BP 105/52
--- NOTE | 2020-09-09 21:03 | NUR ---
RECEIVED PT AWAKE, ALERT AND ORIENTEDX4. PT IN NO ACUTE DISTRESS. PT ON 3L NASAL CANNULA. SAFETY AND COMFORT PROVIDED. WILL CONTINUE TO MONITOR.
--- NOTE | 2020-09-09 22:20 | NUR ---
PT GIVEN NORCO 10-325MG PRN TABLET AT FOR LOWER BACK PAIN. PT TOLERATED IT WELL. AT 2101H KLONOPIN 0.5MG TABLET PRN GIVEN FOR ANXIETY AND SLEEP. PT TOLERATED IT WELL.PT STABLE. VITAL SIGNS STABLE. WILL CONTINUE TO MONITOR.
[2020-09-10] MEDS: ALBUTEROL SULFATE 2.5 MG/3 ML NEBU NEB PRN (03:44)
[2020-09-10 04:39] VITALS: BP 130/68
[2020-09-10] MEDS: GUAIFENESIN SUGAR FREE 100 MG/5 ML UDC PO PRN ×3 (05:10→21:30)
--- NOTE | 2020-09-10 05:17 | NUR ---
Robitussin plain sugar free 100mg given at 0510h to pt for cough. Pt 1 medication of Robitussin was wasted because it spilled by the pt. Pt was given breathing treatment prn .
--- NOTE | 2020-09-10 06:11 | NUR ---
PT SLEPT INTERMITTENTLY. PT IN NO ACUTE DISTRESS. PRESCRIBED MEDICATION GIVEN AND PT TOLERATED IT WELL. PT TURNED AND REPOSITIONED. SAFETY AND COMFORT PROVIDED. WILL ENDORSE TO INCOMING NURSE FOR CONTINUITY OF CARE.
[2020-09-10] MEDS: IPRATROPIUM BROMIDE 0.5 MG/2.5 ML NEBU NEB SCH ×4 (07:35→20:02)
[2020-09-10] MEDS: ALBUTEROL SULFATE 2.5 MG/3 ML NEBU NEB SCH ×4 (07:35→20:02)
[2020-09-10 08:00] VITALS: BP 111/60
[2020-09-10] MEDS: ESCITALOPRAM OXALATE 10 MG TABLET PO SCH (08:40)
[2020-09-10] MEDS: METOPROLOL SUCCINATE XL 25 MG TAB.SR.24H PO SCH (08:40)
[2020-09-10] MEDS: AMIODARONE HCL 200 MG TABLET PO SCH ×2 (08:40→16:20)
[2020-09-10] MEDS: CYANOCOBALAMIN 1,000 MCG TABLET PO SCH (08:40)
[2020-09-10] MEDS: FOLIC ACID 1 MG TABLET PO SCH (08:40)
[2020-09-10] MEDS: FUROSEMIDE 20 MG TABLET PO SCH (08:41)
[2020-09-10] MEDS: DILTIAZEM HCL 60 MG TABLET PO SCH ×2 (08:41→16:20)
[2020-09-10] MEDS: APIXABAN 5 MG TABLET PO SCH ×2 (08:42→16:22)
[2020-09-10] MEDS: methylPREDNISolone SOD SUCC 40 MG/ML VIAL IV SCH ×2 (08:49→20:04)
[2020-09-10] MEDS: LIDOCAINE 5% PATCH TD SCH ×2 (08:50)
[2020-09-10] MEDS: ENSURE ENLIVE (VAN) 240 ML LIQUID PO SCH ×2 (08:50→16:20)
[2020-09-10] MEDS: HYDROCORTISONE 1% CREAM 30 GM TUBE TP PRN (12:59)
--- NOTE | 2020-09-10 15:55 | NUR ---
alert, oriented x4, no acute distress noted, patient does not seem to be very motivated toward rehab exercises, does not like to sit in chair even upon convincing, explaining risks and benefits, still refuses to stay in chair for few minutes, does not like to put extra effort for ambulating per rehab, likes to stay in bed, however turned and repositioned, skin intact, heels are floating at pillows to reliever the pressure, kept clean and dry.
[2020-09-10 16:05] VITALS: BP 125/49
[2020-09-10] MEDS: MONTELUKAST SODIUM 10 MG TABLET PO SCH (17:48)
[2020-09-10] MEDS: HYDROCODONE/APAP 10-325 MG TABLET PO PRN (19:50)
[2020-09-10] MEDS: SENNOSIDES 1 TABLET PO SCH (20:04)
--- NOTE | 2020-09-10 20:29 | NUR ---
RECEIVED PT AWAKE, ALERT AND ORIENTEDX4. PT IN NO ACUTE DISTRESS. PT ON 3L NASAL CANNULA. SAFETY AND COMFORT PROVIDED. PT WAS GIVEN NORCO 10-325MG 1 TABLET PRN AT 1950H FOR LOWER BACK PAIN. WILL CONTINUE TO MONITOR.
[2020-09-10 20:33] VITALS: BP 121/44
[2020-09-10] MEDS: CLONAZEPAM 0.5 MG TABLET PO PRN (21:30)
[2020-09-11 04:43] VITALS: BP 131/50
[2020-09-11] MEDS: HYDROCODONE/APAP 10-325 MG TABLET PO PRN ×3 (05:58→21:20)
[2020-09-11] MEDS: GUAIFENESIN SUGAR FREE 100 MG/5 ML UDC PO PRN (05:58)
--- NOTE | 2020-09-11 06:08 | NUR ---
PT SLEPT INTERMITTENTLY. PRESCRIBED MEDICATION GIVEN AND PT TOLERATED IT WELL. PT GIVEN KLONOPIN 0.5MG PRN AT 2130H PER PT REQUEST FOR SLEEP . PT TOLERATED IT WELL. PT IN NO ACUTE DISTRESS. AT 2130HAND 0558H ROBITUSSIN 100MG PRN GIVEN FOR COUGH. NORCO PRN GIVEN AT 0558H FOR PAIN. PT TOLERATED IT WELL. PT TURNED AND REPOSITIONED. VITAL SIGNS WITHIN NORMAL LIMIT. SAFETY AND COMFORT PROVIDED. WILL ENDORSE TO INCOMING NURSE FOR CONTINUITY OF CARE.
[2020-09-11 06:26] LABS: HEMATOCRIT 25.6 % (31.2-41.9); HEMOGLOBIN 8.5 g/dL (10.9-14.3); LYMPHOCYTES # (AUTO) 0.6 K/uL (20.0-40.0); MEAN CORPUSCULAR HEMOGLOBIN 31.4 uug (24.7-32.8); MEAN CORPUSCULAR HGB CONC 33 g/dL (32.3-35.6); MEAN CORPUSCULAR VOLUME 94.7 fL (75.5-95.3); MONOCYTES # (AUTO) 0.3 K/uL (2.0-10.0); MONOCYTES % (AUTO) 4.2 % (0.0-11.0); NEUTROPHILS # (AUTO) 5.4 K/uL (1.8-8.9); NEUTROPHILS % (AUTO) 85.8 % (38.5-71.5); PLATELET COUNT (AUTO) 200 K/uL (179-408); RED BLOOD CELL COUNT(AUTO) 2.71 MIL/uL (3.63-4.92); WHITE BLOOD COUNT (AUTO) 6.3 K/uL (3.8-11.8)
[2020-09-11 06:39] LABS: CARBON DIOXIDE 33 mmol/L (21-32); CHLORIDE 100 mmol/L (98-107); CREATININE 1.8 mg/dL (0.6-1.3); GLUCOSE 176 mg/dL (74-106); MAGNESIUM 1.6 mg/dL (1.8-2.4); PHOSPHOROUS 3.4 mg/dL (2.5-4.9); POTASSIUM 4.8 mmol/L (3.5-5.1); UREA NITROGEN, BLOOD 56 mg/dL (7-18)
[2020-09-11 07:32] VITALS: BP 136/51
--- NOTE | 2020-09-11 08:00 | NUR ---
Pt alert and oriented x 4 discussed proper pain management. Encouraged pt to be as independent as possible. Pt agreeable with plan of care. Pt brushing her teeth with set up. No sob noted. O2 @ 3lit via n/c with sat of 97%
[2020-09-11] MEDS: IPRATROPIUM BROMIDE 0.5 MG/2.5 ML NEBU NEB SCH ×4 (08:10→18:56)
[2020-09-11] MEDS: ALBUTEROL SULFATE 2.5 MG/3 ML NEBU NEB SCH ×4 (08:10→18:56)
[2020-09-11] MEDS: CYANOCOBALAMIN 1,000 MCG TABLET PO SCH (09:25)
[2020-09-11] MEDS: LIDOCAINE 5% PATCH TD SCH ×2 (09:25)
[2020-09-11] MEDS: FUROSEMIDE 20 MG TABLET PO SCH (09:25)
[2020-09-11] MEDS: FOLIC ACID 1 MG TABLET PO SCH (09:27)
[2020-09-11] MEDS: DILTIAZEM HCL 60 MG TABLET PO SCH ×2 (09:28→16:38)
[2020-09-11] MEDS: AMIODARONE HCL 200 MG TABLET PO SCH ×2 (09:28→16:36)
[2020-09-11] MEDS: predniSONE 20 MG TABLET PO SCH ×2 (09:28→16:37)
[2020-09-11] MEDS: ESCITALOPRAM OXALATE 10 MG TABLET PO SCH (09:28)
[2020-09-11] MEDS: APIXABAN 5 MG TABLET PO SCH ×2 (09:29→16:36)
[2020-09-11] MEDS: ENSURE ENLIVE (VAN) 240 ML LIQUID PO SCH ×2 (09:29→16:36)
[2020-09-11] MEDS: METOPROLOL SUCCINATE XL 25 MG TAB.SR.24H PO SCH (09:29)
[2020-09-11] MEDS ORDERED: MAGNESIUM OXIDE 400 MG TABLET PO ONE (12:00)
[2020-09-11 16:00] VITALS: BP 123/81
[2020-09-11] MEDS: MONTELUKAST SODIUM 10 MG TABLET PO SCH (16:37)
--- NOTE | 2020-09-11 18:33 | NUR ---
Pt requesting to contact dr jason re changing norco's frequency to q 4 hrs secondary pt states that when she gets physical therapy she waits "too long in between doses." Awaiting call back from Pato.
--- NOTE | 2020-09-11 20:00 | NUR ---
RECEIVED PATIENT AWAKE IN BED. A/O X3. DENIES ANY PAIN OR DISCOMFORT. NO RESP. DISTRESS NOTED. H/L INTACT AND PATENT. ON O2 3L NC SATING WELL. BED ALARM ON. CALL LIGHT IN REACH. ALL NEEDS ATTENDED. WILL CONTINUE TO MONITOR AND ASSESS.
[2020-09-11 20:27] VITALS: BP 115/47
[2020-09-11] MEDS: SENNOSIDES 1 TABLET PO SCH (20:27)
[2020-09-11] MEDS: CLONAZEPAM 0.5 MG TABLET PO PRN (20:39)
[2020-09-12 04:47] VITALS: BP 146/50
--- NOTE | 2020-09-12 06:35 | NUR ---
RECEIVED CALL FROM LAB. RAPID COVID TEST NEGATIVE. RAIL WASHER NOTIFIED.
[2020-09-12 06:36] LABS: HEMATOCRIT 26.3 % (31.2-41.9); HEMOGLOBIN 8.8 g/dL (10.9-14.3); LYMPHOCYTES % (AUTO) 9.2 % (20.5-51.5); MEAN CORPUSCULAR HEMOGLOBIN 31.6 uug (24.7-32.8); MEAN CORPUSCULAR HGB CONC 33 g/dL (32.3-35.6); MEAN CORPUSCULAR VOLUME 94.6 fL (75.5-95.3); MONOCYTES # (AUTO) 1.3 K/uL (2.0-10.0); MONOCYTES % (AUTO) 11.9 % (0.0-11.0); NEUTROPHILS # (AUTO) 8.5 K/uL (1.8-8.9); NEUTROPHILS % (AUTO) 78.9 % (38.5-71.5); PLATELET COUNT (AUTO) 204 K/uL (179-408); RED BLOOD CELL COUNT(AUTO) 2.78 MIL/uL (3.63-4.92); WHITE BLOOD COUNT (AUTO) 10.7 K/uL (3.8-11.8)
[2020-09-12 06:40] LABS: CARBON DIOXIDE 32 mmol/L (21-32); CHLORIDE 100 mmol/L (98-107); CREATININE 1.7 mg/dL (0.6-1.3); GLUCOSE 152 mg/dL (74-106); MAGNESIUM 1.7 mg/dL (1.8-2.4); PHOSPHOROUS 3.2 mg/dL (2.5-4.9); POTASSIUM 4.6 mmol/L (3.5-5.1); UREA NITROGEN, BLOOD 59 mg/dL (7-18)
[2020-09-12 07:30] VITALS: BP 139/54
--- NOTE | 2020-09-12 07:30 | NUR ---
RECEIVED IN BED AWAKE ALERT AND ORIENTED BUT FORGETFUL REMAIN ON O2 AT 3L/M BY NASAL CANULLA WITH NO SOB AT THIS TIME HHN IN PROGRESS ORDERED CALL LIGHTS AND HER PERSONAL BELONGINGS ARE WITHIN EASY REACH MADE COMFORTABLE WILL CONTINUE TO OBSERVE.
--- NOTE | 2020-09-12 08:15 | NUR ---
PATIENT SEEN AND EXAMINED BY DR LONDON WITH NO NEW ORDERS AT THIS TIME
[2020-09-12] MEDS: ALBUTEROL SULFATE 2.5 MG/3 ML NEBU NEB SCH ×4 (08:21→18:29)
[2020-09-12] MEDS: IPRATROPIUM BROMIDE 0.5 MG/2.5 ML NEBU NEB SCH ×4 (08:21→18:30)
[2020-09-12] MEDS: predniSONE 20 MG TABLET PO SCH ×2 (08:35→17:07)
[2020-09-12] MEDS: CYANOCOBALAMIN 1,000 MCG TABLET PO SCH (08:37)
[2020-09-12] MEDS: FOLIC ACID 1 MG TABLET PO SCH (08:38)
[2020-09-12] MEDS: ESCITALOPRAM OXALATE 10 MG TABLET PO SCH (08:38)
[2020-09-12] MEDS: FUROSEMIDE 20 MG TABLET PO SCH (08:38)
[2020-09-12] MEDS: AMIODARONE HCL 200 MG TABLET PO SCH ×2 (08:39→16:46)
[2020-09-12] MEDS: METOPROLOL SUCCINATE XL 25 MG TAB.SR.24H PO SCH (08:39)
[2020-09-12] MEDS: DILTIAZEM HCL 60 MG TABLET PO SCH ×2 (08:39→16:47)
[2020-09-12] MEDS: APIXABAN 5 MG TABLET PO SCH ×2 (08:40→16:56)
[2020-09-12] MEDS: LIDOCAINE 5% PATCH TD SCH ×2 (08:40→08:41)
[2020-09-12] MEDS: HYDROCODONE/APAP 10-325 MG TABLET PO PRN ×2 (08:46→21:07)
[2020-09-12] MEDS: diphenhydrAMINE 25 MG CAP PO PRN ×2 (09:32→16:44)
[2020-09-12] MEDS: ENSURE ENLIVE (VAN) 240 ML LIQUID PO SCH ×2 (09:37→16:55)
[2020-09-12] MEDS: CLOTRIMAZOLE 10 MG TROCHE MM SCH ×4 (09:42→20:39)
[2020-09-12] MEDS ORDERED: FLUCONAZOLE 100 MG TABLET PO ONE (11:15)
[2020-09-12] MEDS ORDERED: MAGNESIUM OXIDE 400 MG TABLET PO ONE (11:45)
[2020-09-12] MEDS: HYDROCORTISONE 1% CREAM 30 GM TUBE TP PRN (15:30)
[2020-09-12 16:00] VITALS: BP 110/41
[2020-09-12] MEDS: MONTELUKAST SODIUM 10 MG TABLET PO SCH (17:07)
--- NOTE | 2020-09-12 17:33 | NUR ---
NEW ORDERS NOTED FROM MARIANA MANAGER USER EXPERIENCE FOR ANTI FUNGAL YEAST INFECTION MEDICATION PATIENT EDUCATED AND SHE EXPRESSED UNDERSTANDING.
[2020-09-12 20:00] VITALS: BP 124/50
--- NOTE | 2020-09-12 20:00 | NUR ---
PATIENT IS RESTING IN BED AWAKE ALERT AND ORIENTED DENIES PAIN OR DISCOMFORTS AT THIS TIME ON O2 AT 3L/M BY NASAL CANULLA WITH NO SHORTNESS OF BREATH AT THIS TIME CALL LIGHTS AND PERSONAL BELONGINGS ARE WITHIN EASY REACH AT THIS TIME WILL CONTINUE TO OBSERVE.
--- NOTE | 2020-09-12 20:30 | NUR ---
RECEIVED CALL FROM THE LAB RE COVID PCR RESULT IS NEGATIVE PATIENT AWARE.
[2020-09-12] MEDS: SENNOSIDES 1 TABLET PO SCH (20:39)
--- NOTE | 2020-09-12 21:07 | NUR ---
PATIENT C/O BACK PAIN REPOSITIONED AND ,MEDICATED WITH NORCO ORDERED WILL CONTINUE TO OBSERVE.
[2020-09-12] MEDS: CLONAZEPAM 0.5 MG TABLET PO PRN (22:12)
[2020-09-13 04:00] VITALS: BP 132/55
--- NOTE | 2020-09-13 06:17 | NUR ---
Patient slept well last night. Denies any pain or SOB. IV site on right hand intact and patent. Denies any cough or secretions. O2 at 3LPM via NC in place. Incontinent care provided. Assist to turn and reposition for comfort. Needs attended to and met. Safety measure maintained and call cassidy within reached.
[2020-09-13] MEDS: IPRATROPIUM BROMIDE 0.5 MG/2.5 ML NEBU NEB SCH ×3 (07:41→14:52)
[2020-09-13] MEDS: ALBUTEROL SULFATE 2.5 MG/3 ML NEBU NEB SCH ×3 (07:41→14:52)
--- NOTE | 2020-09-13 07:55 | NUR ---
received change of shift report. pt c/o COPD exacerbation, on 3L O2 via NC. no sign of distress, SOB or pain at this time. pt able to self suction, pt using diaper, IV access on the right hand 20g saline lock. call light within reach, safety precautions in place, will continue with plan of care.
[2020-09-13 07:56] VITALS: BP 144/54
[2020-09-13] MEDS: CYANOCOBALAMIN 1,000 MCG TABLET PO SCH (08:49)
[2020-09-13] MEDS: APIXABAN 5 MG TABLET PO SCH (08:50)
[2020-09-13] MEDS: FOLIC ACID 1 MG TABLET PO SCH (08:51)
[2020-09-13] MEDS: DILTIAZEM HCL 60 MG TABLET PO SCH (08:51)
[2020-09-13] MEDS: METOPROLOL SUCCINATE XL 25 MG TAB.SR.24H PO SCH (08:52)
[2020-09-13] MEDS: ESCITALOPRAM OXALATE 10 MG TABLET PO SCH (08:52)
[2020-09-13] MEDS: CLOTRIMAZOLE 10 MG TROCHE MM SCH ×2 (08:52→14:55)
[2020-09-13] MEDS: AMIODARONE HCL 200 MG TABLET PO SCH (08:52)
[2020-09-13] MEDS: FUROSEMIDE 20 MG TABLET PO SCH (08:52)
[2020-09-13] MEDS: predniSONE 20 MG TABLET PO SCH (08:52)
[2020-09-13] MEDS: ENSURE ENLIVE (VAN) 240 ML LIQUID PO SCH (08:52)
[2020-09-13] MEDS: LIDOCAINE 5% PATCH TD SCH ×2 (08:53→08:54)
[2020-09-13] MEDS: HYDROCODONE/APAP 10-325 MG TABLET PO PRN (09:14)
[2020-09-13 15:08] VITALS: BP 125/40
--- NOTE | 2020-09-13 15:30 | NUR ---
pt discharge to [facility]. report given to Tamiko Kuhn, Paper Reel Operator. pt a/ox4, pt has bruising on the left arm, on 3L O2 via NC saturating at 96%. pt bed bound, incontinent voids via diaper. no signs of distress, no reports of pain, all medications given as ordered. all needs met this shift. pt left with all belongings, prescription and paperwork. IV access removed and ID band removed prior to discharge. Vitals WNL: 98.8 temp, 60 pulse, 96% on 3L O2, 125/40 BP. pt left via ambulance in [facility].
--- NOTE | 2020-09-13 16:30 | NUR ---
pt discharged home. pt on room air, saturating at 99%, no signs of distress, no repots of pain. pt left with all belongings and paperwork. pt vitals WNL, pt ambulatory with FWW, pt took home crutches she brought from home. a/ox4 IV band and IV removed prior to discharge. all medications given as prescribed, all needs met this shift, pt left with sonRohith via wheelchair to private car. Addendum: 09/13/20 at 1700 by WM GRIER RN disregard, wrong pt.
== END 2020-09-13 15:30 | disposition home health service (06) | DRG 190 ==
PROVIDERS: ADMIT Physical Medicine & Rehabilitation Pain Medicine; ATTEND Physical Medicine & Rehabilitation Pain Medicine
DX: J44.1 Chronic obstructive pulmonary disease with (acute) exacerbation (principal); J15.9 Unspecified bacterial pneumonia; I50.32 Chronic diastolic (congestive) heart failure; J96.11 Chronic respiratory failure with hypoxia; M48.56XA Collapsed vertebra, not elsewhere classified, lumbar region, initial encounter for fracture; E87.1 Hypo-osmolality and hyponatremia; G72.81 Critical illness myopathy; I13.0 Hypertensive heart and chronic kidney disease with heart failure and stage 1 through stage 4 chronic kidney disease, or unspecified chronic kidney disease; N17.9 Acute kidney failure, unspecified; B37.0 Candidal stomatitis; F32.9 Major depressive disorder, single episode, unspecified; D64.9 Anemia, unspecified; H35.30 Unspecified macular degeneration; I25.10 Atherosclerotic heart disease of native coronary artery without angina pectoris; I48.0 Paroxysmal atrial fibrillation; K21.9 Gastro-esophageal reflux disease without esophagitis; K59.00 Constipation, unspecified; Z86.16 Personal history of COVID-19; Z87.891 Personal history of nicotine dependence; Z90.49 Acquired absence of other specified parts of digestive tract; J44.0 Chronic obstructive pulmonary disease with (acute) lower respiratory infection; K30 Functional dyspepsia; M19.90 Unspecified osteoarthritis, unspecified site; E87.5 Hyperkalemia; E87.6 Hypokalemia; I70.0 Atherosclerosis of aorta; G62.9 Polyneuropathy, unspecified; N18.9 Chronic kidney disease, unspecified; G89.4 Chronic pain syndrome; Z88.5 Allergy status to narcotic agent; Z20.822 Contact with and (suspected) exposure to COVID-19; Z86.718 Personal history of other venous thrombosis and embolism; Z88.6 Allergy status to analgesic agent; Z88.1 Allergy status to other antibiotic agents; Z88.8 Allergy status to other drugs, medicaments and biological substances; R53.81 Other malaise; Z79.01 Long term (current) use of anticoagulants; Z96.652 Presence of left artificial knee joint; Z22.322 Carrier or suspected carrier of Methicillin resistant Staphylococcus aureus; Z88.2 Allergy status to sulfonamides
CPT/HCPCS: 36415; 70030-TC; 71045; 74018; 76770; 82785; 83550; 83735; 84100; 85025; 87040; 87070; 87086; 93880; 94640; 94664; A4217; A4663; C1758; J2185; J2543; J2920; J3370; J3490; J3590; J7040; J7050; J7060; J7512; Q0162; Q0163; U0003